=== PATIENT | male | born 1945 | race Caucasian/White ===

== ENCOUNTER 2024-12-25 14:24 | Inpatient (IN) | payer MEDICARE, OTHER ==
[~2024-12-25] VITALS: Ht 170.2 cm; Wt 71.0 kg
[2024-12-25 14:46] LABS: BASOPHILS % (AUTO) 0.4 % (0-1); EOSINOPHILS % (AUTO) 0.4 % (0-6); HEMATOCRIT 43.6 % (42.0-52.0); HEMOGLOBIN 14.3 g/dl (14.0-17.9); LYMPHOCYTES # (AUTO) 1.3 X10'3 (1.1-4.8); LYMPHOCYTES % (AUTO) 16.2 % (21-51); MEAN CORPUSCULAR HEMOGLOBIN 30.3 PG (27.0-31.0); MEAN CORPUSCULAR HGB CONC 32.9 g/dL (33.0-36.5); MEAN CORPUSCULAR VOLUME 91.9 FL (78-98); MEAN PLATELET VOLUME 8.3 FL (7.4-10.4); MONOCYTES # (AUTO) 0.5 X10'3 (0-0.9); MONOCYTES % (AUTO) 6.8 % (2-12); NEUTROPHILS # (AUTO) 5.9 X10'3 (1.8-7.7); NEUTROPHILS % (AUTO) 76.2 % (42-75); PLATELET COUNT 246 X10'3 (140-440); RED BLOOD COUNT 4.74 X10'6 (4.70-6.10); RED CELL DISTRIBUTION WIDTH 16.4 % (11.5-14.5); WHITE BLOOD COUNT 7.8 X10'3 (4.5-11.0)
--- NOTE | 2024-12-25 15:00 | Physician Documentation ---
History of Present Illness ~ Chief Complaint: Bradycardia Stated Complaint: IRREG HEART RATE Time Seen by MD: 14:28 OK to notify your PCP?: Yes Source: patient, RN/MD, EMS, RN notes reviewed, EMS notes reviewed, old records Mode of Arrival: EMS, Air Transport Exam Limitations: no limitations HPI 79 year old male presents to the emergency department flown in by [facility] from [facility]. Patient was given both aspirin and Lovanox while there and then transferred. 79 year old male presents to the emergency department for complaints with a chief complaint related cardiac arrhythmia. He states last week he was going to donate blood and the nurses up there noted he was having an irregular heart beat. The recommended he follow up with his primary care provider. He did see his primary today and EKG was collected and noted to have ventricle bigeminy. Patient states he was unaware of palpitations or arrhythmia as he has no history of this. He does report history of asthma and hypertension. Denies any chest pain, shortness of breath recent vomiting diarrhea or other symptoms of illness. Primary care provider notes note initial heart rate of 38 on arrival to the clinic. Patient denies any other associated symptoms at this time. Patient denies any other alleviating or exacerbating factors Significant labs: Troponin: 0.083 Chest Xray from [facility]: Impressions: 1. No acute cardiopulmonary disease. Medication Reconciliation Allergies: Uncoded Allergies: PEANUTS (Allergy, Unknown, NAUSEA, 12/25/24) Scheduled Atorvastatin Calcium (Atorvastatin Calcium), 1 TAB PO DAILY, (Reported) Brinzolamide (Brinzolamide), 1 DROP RIGHTEYE BID, (Reported) Lisinopril (Lisinopril), 2 TAB PO HS, (Reported) Miscellaneous Medications Budesonide (Pulmicort Flexhaler), (Reported) Dorzolamide HCl (Dorzolamide HCl), EACHEYE, (Reported) Latanoprost (Latanoprost), EACHEYE, (Reported) Discontinued Medications Lisinopril (Lisinopril), 1 TAB PO BID, (Reported) Discontinued Reason: patient no longer taking Past Medical History Past Medical History: Hypertension, Asthma, COPD, Anemia, Depression Smoking Status: Never smoker Alcohol Use: Occasionally Drug Use: none Review of Systems All Other Systems at this time: Reviewed and Negative ROS As stated above in the HPI, otherwise all systems are reviewed and negative. Physical Exam Vital Signs: RN Vital Signs have been reviewed: Yes, Temperature: 97.8, Heart Rate: 73, Respiratory Rate: 13, BP: 143/84, Pulse Oximetry: 97, Weight: 71.000 Oxygen Flow Rate: 0 Pulse Oximetry Reflects: adequate oxygenation Physical Exam General: The patient is well developed, well nourished, nontoxic appearing and is in no acute distress. Skin: [place], warm and dry with no rashes. HEENT: Head was normocephalic and atraumatic. Eyes - pupils equal, round, reactive to light and accommodation. Extraocular movements were intact. Conjunctivae were nonicteric. Ears - bilateral tympanic membranes were normal. The mouth and oropharynx were clear with moist mucous membranes. There were no pharyngeal exudates or erythema. Neck: Supple and nontender. There was no jugular venous distention, lymphadenopathy, thyromegaly or masses. Chest: Clear to auscultation bilaterally without wheezes, rales or rhonchi. No accessory muscle use. No dullness to percussion. Heart: Abnormal rate with irregular rhythm. S1, S2. No murmurs. Palpation of the chest wall was normal. No rubs or thrills. Abdomen: Soft, nontender and nondistended. Positive bowel sounds. No guarding or rebound. No hepatosplenomegaly or palpable masses. Extremities: No cyanosis, clubbing or edema. The patient moves all extremities. Pulses were equal and symmetric. Neurologic: Cranial nerves II-XII were intact. Sensation was intact to light touch throughout. Motor strength was 5/5 in all four extremities. Deep tendon reflexes were intact in both upper and lower extremities. Psychologic: The patient was oriented to person, place and time. The patient demonstrated appropriate judgement and insight. Progress Progress Note 1617: The case was discussed with Dr. Benavidez who was informed on the patients case and had kindly agreed to admission. Results/Orders Results/Orders Orders - MATHEW LOCKE MD Chest,Single View (12/25/24 14:36) Monitor (12/25/24 14:36) Saline Lock (12/25/24 14:36) Oxygen (12/25/24 14:36) Electrocardiogram (12/25/24 14:36) Page Hospitalist (12/25/24 15:22) Completed Orders - MATHEW LOCKE MD Chest,Single View (12/25/24 14:36) Cbc/Diff (12/25/24 14:36) PBNP (12/25/24 14:36) Electrocardiogram (12/25/24 14:36) CMP (12/25/24 14:36) Hs Troponin I W Calculations (12/25/24 14:36) Hs Troponin I W Calculations (12/25/24 16:36) Hs Troponin I W Calculations (12/25/24 17:36) Pt Inr (12/25/24 15:22) PTT (12/25/24 15:22) Normal Saline 1000ml (Sodium Chloride 10 (12/25/24 15:25) Hgb A1c (12/25/24 14:27) Medications Received in ER Medications (Trade) Dose Ordered Sig/Wandy Route PRN Reason Start Time Stop Time Status Last Admin Dose Admin Sodium Chloride 1,000 ml @ 200 mls/hr Q5H ONCE IV 12/25/24 15:25 12/25/24 20:24 DC 12/25/24 15:34 200 MLS/HR Vital Signs 12/25/24 12/25/24 12/25/24 12/25/24 14:25 14:59 15:36 15:39 Temp 97.8 97.8 97.8 Pulse 73 68 68 Resp 13 11 12 B/P (MAP) 143/84 113/78 (90) 120/75 (90) Pulse Ox 97 95 96 O2 Flow Rate 0 0 0 Laboratory Tests Test 12/25/24 14:27 White Blood Count 7.8 Red Blood Count 4.74 Hemoglobin 14.3 Hematocrit 43.6 Mean Corpuscular Volume 91.9 Mean Corpuscular Hemoglobin 30.3 Mean Corpuscular Hemoglobin Concent 32.9 L Red Cell Distribution Width 16.4 H Platelet Count 246 Mean Platelet Volume 8.3 Neutrophils (%) (Auto) 76.2 H Lymphocytes (%) (Auto) 16.2 L Monocytes (%) (Auto) 6.8 Eosinophils (%) (Auto) 0.4 Basophils (%) (Auto) 0.4 Neutrophils # (Auto) 5.9 Lymphocytes # (Auto) 1.3 Monocytes # (Auto) 0.5 Eosinophils # (Auto) 0.0 Basophils # (Auto) 0.0 CBC Comment Prothrombin Time 11.4 INR International Normalized Ratio 1.1 Activated Partial Thromboplast Time 31 Coagulation Comments Sodium Level 141 Potassium Level 4.2 Chloride Level 106 Carbon Dioxide Level 26.9 Anion Gap 8 Blood Urea Nitrogen 19 H Creatinine 1.08 Estimated GFR/1.73 m2 66 BUN/Creatinine Ratio 17.6 Glucose Level 103 Hemoglobin A1c 5.6 Calcium Level 9.2 Total Bilirubin 0.5 Aspartate Amino Transf (AST/SGOT) 41 H Alanine Aminotransferase (ALT/SGPT) 46 Alkaline Phosphatase 83 Troponin I High Sensitivity 104 *H Pro-B-Type Natriuretic Peptide 58 Total Protein 7.4 Albumin 3.7 Globulin 3.7 Albumin/Globulin Ratio 1.0 L Chemistry Comments Re-Evaluation Re-Evaluation : Re-Evaluation: Improved Additional Comment Patient was seen and examined. Patient is given reassurance. I received a phone call regarding the patient's management arrange assisted with pre-hospital care and transfer. Patient initial troponin was positive at follow up of her meals. I requested Lovenox and aspirin. Patient was then transferred to our facility. Upon arrival patient appears well no longer bradycardic in the 30s. Patient now has a heart rate in the 60s with occasional PVCs. CBC was within no rmal limits without leukocytosis or anemia. Chemistry LFTs were also within normal limits however troponin slightly elevated at 104. EKG was reassuring in that there was no signs of ischemia. Patient was then admitted to the hospitalist service or possible pacemaker cardiac catheterization and further workup and care. Patient is not on any beta blockers at this time. Continuous secured entrance monitor interpretation shows normal sinus rhythm heart rate 60s, no ectopy, normal, my interpretation. Pulse oximetry monitor interpretation shows normal oxygenation 96% room air, normal, my interpretation. EKG/XRAY/CT/US/VASC/MRI EKG : Additional Comment [facility] Test Date: 2024-12-25 Test Time: 14:25:24 Pat Name: ANTHONY MONROE Department: EMERGENCY ROOM Room: Gender: M Cruise Coordinator: : 1945 Requested By: MATHEW LOCKE Order Number: [id number] Reading MD: Dr. Mathew Locke Measurements Intervals [place] Rate: 71 P: 28 AR: 167 QRS: 40 QRSD: 95 T: 7 QT: 403 QTc: 438 Interpretive Statements Sinus rhythm Multiform ventricular premature complexes Borderline repolarization abnormality Electronically Signed On 12-25-2024 16:26:[address] Mathew Locke Please click the below link to view image of tracing. EKG Date and Time:12/25/24 1425 Electronically Signed by: MATHEW LOCKE MD Date and Time: 12/25/24 1626 Chest X-Ray : Additional Comments EXAM: XR Chest, 1 View CLINICAL INDICATION: CP TECHNIQUE: Frontal view of the chest. COMPARISON: None FINDINGS: LUNGS AND PLEURAL SPACES: Unremarkable. No consolidation. No pneumothorax. HEART: Unremarkable. No cardiomegaly. MEDIASTINUM: Unremarkable. Normal mediastinal contour. BONES/JOINTS: Unremarkable. No acute fracture. OTHER FINDINGS: . IMPRESSION: No acute cardiopulmonary process. Electronically Signed by:GILES RETANA MD Date & Time: 12/25/24 1515 Heart Score: Heart Score Response (Comments) Value History Slightly Suspicious 0 EKG Repolarization Disturb 1 Age >65 2 Risk Factors 1 or 2 risk factors 1 Troponin >3 x's Normal limit 2 Total 6 Medical Decision Making Additional info obtained from: old records Differential Dx:Considerations: Include: angina / [place], atrial dysrhythmia, atrial fibrillation, atrial flutter, MAT, PACs, PSVT, sinus tachycardia, WPW, 1st degree AV block, 2nd degree AVB-type 1, 2nd degree AVB-type 2, 3rd degree AV block, PVCs, torsades de pointes, ventricular fibrillation, ventricular tachycardia, other Differential Dx:Considerations: Include anxiety/panic attack, Include digoxin toxicity, Include electrolyte disorder, Include heart failure, Include hyperthy roidism, Include hyperventilation, Include hypoxia, Include pacemaker malfunction, Include pulmonary embolus, Include renal failure, Include other Departure Time of Disposition: 16:17 Disposition: 09 ADMITTED INPATIENT Admitted to Inpatient Unit: yes, to hospitalist Impression: Primary Impression: NSTEMI (non-ST elevated myocardial infarction) Additional Impressions: Bradycardia Bigeminy Condition: Guarded Referrals: NO PRIMARY CARE PROVIDER (PCP) Education Educated: Patient Educated regarding: diagnosis, need for follow up Critical Care Note Total Time (mins): 30 Critical Care Note The very real possibility of a deterioration of this patient's condition required the highest level of my preparedness for sudden, emergent intervention. I provided critical care services, which included medication orders, frequent reevaluations of the patient's condition and response to treatment, ordering and reviewing test results, and discussing the case with various consultants. Excludes time spent performing separately billable procedures. The critical care time associated with the care of the patient was 30 minutes. Signature Scribe Signature: Scribed for Mathew Locke MD by Brandon Broussard . 12/25/24 15:50 Attestation: The note accurately reflects work and decisions made by me.Mathew Locke MD 12/25/24 14:59 MATHEW LOCKE MD December 25, 2024 14:59 BRANDON PRADO December 25, 2024 15:39
[2024-12-25 15:01] LABS: ALANINE AMINOTRANSFERASE 46 U/L (12-78); ALBUMIN 3.7 G/DL (3.4-5.0); ALKALINE PHOSPHATASE 83 IU/L (46-116); ANION GAP 8 (8-16); ASPARTATE AMINO TRANSFERASE 41 U/L (10-37); BILIRUBIN,TOTAL 0.5 MG/DL (0.1-1.0); BLOOD UREA NITROGEN 19 MG/DL (7-18); BUN/CREATININE RATIO 17.6 (10.0-20.0); CALCIUM 9.2 MG/DL (8.5-10.1); CHLORIDE 106 MMOL/L (99-107); CREATININE 1.08 MG/DL (0.60-1.10); GLUCOSE 103 MG/DL (70-104); POTASSIUM 4.2 MMOL/L (3.5-5.1); SODIUM 141 MMOL/L (135-145); TOTAL CARBON DIOXIDE 26.9 MMOL/L (24-32); TOTAL PROTEIN 7.4 G/DL (6.4-8.2); eCRCL 54 ML/MIN; eGFR 66 ML/MIN
[2024-12-25 15:07] LABS: PRO BRAIN NATRIURETIC PEPTIDE 58 PG/ML (0-450)
--- NOTE | 2024-12-25 15:16 | ELECTROCARDIOGRAPH REPORT ---
[facility] Test Date: 2024-12-25 Test Time: 14:25:24 Pat Name: ANTHONY MONROE Department: EMERGENCY ROOM Room: Gender: M Security Incident Handler: : 1945 Requested By: ROGER SAEZ Order Number: [id number] Reading MD: Dr. Roger Saez Measurements Intervals [place] Rate: 71 P: 28 MS: 167 QRS: 40 QRSD: 95 T: 7 QT: 403 QTc: 438 Interpretive Statements Sinus rhythm Multiform ventricular premature complexes Borderline repolarization abnormality Electronically Signed On 12-25-2024 16:26:[address] Roger Saez Please click the below link to view image of tracing.
--- NOTE | 2024-12-25 15:17 | RADIOLOGY REPORT ---
EXAM: XR Chest, 1 View CLINICAL INDICATION: CP TECHNIQUE: Frontal view of the chest. COMPARISON: None FINDINGS: LUNGS AND PLEURAL SPACES: Unremarkable. No consolidation. No pneumothorax. HEART: Unremarkable. No cardiomegaly. MEDIASTINUM: Unremarkable. Normal mediastinal contour. BONES/JOINTS: Unremarkable. No acute fracture. OTHER FINDINGS: . IMPRESSION: No acute cardiopulmonary process.
[2024-12-25] MEDS: normal saline 1000ml 1,000 ML IV ONE (15:34)
[2024-12-25 15:57] LABS: APTT 31 SECONDS (22-32); INR 1.1 INR; PROTHROMBIN TIME 11.4 SECONDS (9.0-12.0)
--- NOTE | 2024-12-25 16:17 | HISTORY AND PHYSICAL ---
History & Physical Providers to CC ~ History of Present Illness Reason for Admit\Complaint: Arrhythmia History of Present Illness History of present illness patient is a pleasant 79-year-old gentleman that was transferred to us for [facility]. Patient had an mildly elevated troponins over there. He says about a week ago he went to donate some blood and they told him he has been irregular heartbeat and he was advised to go to his PCP who did an EKG in his office and noted ventricular bigeminy heart rate was in 30s he was sent to the [place] ER patient now his heart rates running in 60s to 70s he has not had any further bradycardia noted. Patient says he feels fine and he is ready to go home. I did talk to him in the family at the bedside and answered all their questions to the best of my ability and advised to be admitted overnight. Allergies: Uncoded Allergies: PEANUTS (Allergy, Unknown, NAUSEA, 12/25/24) Past Medical History Past Medical History Past medical history COPD hypertension hyperlipidemia Past surgical history nothing of significance Allergies NKDA peanuts Social history denies any nicotine or IV drug abuse has 1-2 drinks per month is lives with family Family history nothing of significance Review of systems negative for all 10 systems reviewed Exam Vitals: Vital Signs Date Time Temp Pulse Resp B/P (MAP) Pulse Ox O2 Delivery O2 Flow Rate FiO2 12/25/24 15:39 97.8 68 12 120/75 (90) 96 0 General: Objectively patient's vital signs are stable he is alert and oriented x4 in no acute distress lying down comfortably speaking in full sentences HEENT normocephalic nontraumatic head PERRLA. EOMI. Neck is supple there is no JVD no bruit CVS first and second heart sounds are regular rate rhythm there is no murmurs gallops or rubs Respiratory system is clear to auscultate bilaterally no rales rhonchi crackles or wheezing Abdomen is soft bowel sounds are positive nontender nondistended Extremities no clubbing cyanosis or edema Neurological exam no focal deficits Skin is warm and intact Diagnostic Data Last Recorded Lab Results: 12/25/24 1427 12/25/24 1427 Diagnostic Data: Laboratory Tests Test 12/25/24 14:27 Prothrombin Time 11.4 SECONDS (9.0-12.0) INR International Normalized Ratio 1.1 INR Activated Partial Thromboplast Time 31 SECONDS (22-32) Coagulation Comments Additional Plan Assessment and plan- -non-STEMI type 2 Possible mismatch in supply and demand with an arrhythmia underlying Monitor patient on a telemetry bed Started the patient on a baby aspirin Lovenox morphine oxygen and lipitor Get a Lexiscan Order an echocardiogram -bradycardia with ventricular bigeminy heart rate dropped into 30s Monitor on a telemetry bed May need a Holter monitor as an outpatient -hypertension well controlled continue home med use clonidine p.r.n. -hyperlipidemia Check lipid panel Continue Statins -patient is started on DVT prophylaxis with Lovenox Patient's that the bedside all questions answered to the best of my ability to her satisfaction with the plan of care Date of Service: December 25, 2024 Billing Provider: RICKY MITCHELL MD Common Visit Codes: 22088-[id number] INP/OBS CARE (HIGH) RICKY MITCHELL MD December 25, 2024 16:17
[2024-12-25] MEDS ORDERED: magnesium hydroxide 30ml (MOM) UD suspension PO PRN (16:20)
[2024-12-25] MEDS ORDERED: metoprolol tartrate 1mg/ml inj IV PRN (16:20)
[2024-12-25] MEDS ORDERED: potassium Cl 20 mEq SR tablet PO PRN ×2 (16:20)
[2024-12-25] MEDS ORDERED: magnesium sulf-water 2g/50mL 50 ML IV PRN (16:20)
[2024-12-25] MEDS ORDERED: ondansetron/PF 4mg/2ml inj IV PRN (16:20)
[2024-12-25] MEDS ORDERED: mag hydrox/Alum hydrox/simeth 30ml oral suspension PO PRN (16:20)
[2024-12-25] MEDS ORDERED: potassium Cl 40MEQ/1/2NS 520ml 520 ML IV PRN (16:20)
[2024-12-25] MEDS ORDERED: acetaminophen 325mg tablet PO PRN (16:20)
[2024-12-25] MEDS ORDERED: magnesium sulf-water 4G/100mL 100 ML IV PRN (16:20)
[2024-12-25] MEDS ORDERED: nitroGLYCERIN 0.4mg SUBLingual tab SL PRN (16:20)
[2024-12-25] MEDS ORDERED: HYDROcodone/acetaminophen 5mg/325mg tablet PO PRN (16:20)
[2024-12-25] MEDS ORDERED: morphine 2 MG/ML inj. syringe IV PRN (16:20)
[2024-12-25] MEDS ORDERED: magnesium Cl slow-release 64mg tablet PO PRN (16:20)
[2024-12-25] MEDS ORDERED: aminophylline 250mg/10ml inj. IV PRN (16:20)
[2024-12-25] MEDS: aspirin 81mg tab.chew PO SCH (16:20)
[2024-12-25 17:08] LABS: HEMOGLOBIN A1C 5.6 % (4.5-6.2)
[2024-12-25 18:00] VITALS: BP 122/84; PULSE 82; RESP 20; TEMP 97.6
--- NOTE | 2024-12-25 18:42 | CARDIOLOGY REPORT ---
APPROVED REPORT EXAM: Comprehensive 2D, Doppler, and color-flow Echocardiogram. Patient Location: ER RM 2 Blood Pressure: 139/75 mmHg Heart Rate: 64 bpm Indications Angina Troponin: 104 Hypertension Asthma COPD HATCHERY WORKER: Eleazar Nassar MD No Previous ECHO 2D Dimensions LA Diam3.5 cm IVSd 0.7 (0.7-1.1cm) LVDd 5.3 cm PWd 0.9 (0.7-1.1cm) IVSs 0.9 (0.8-1.2cm) LVDs 3.4 (2.5-4.0cm) PWs 1.1 (0.8-1.2cm) LVOT Diameter 2.06 (1.8-2.4cm) LVEF(%) 63.3 (>50%) IVC 12.25 mm FS (%) 34.6 % SV 84.3 ml CO 5.2 L/min M-Mode Dimensions Left Atrium(MM) 4.62 (2.5-4.0cm) Aortic Root 3.71 (2.2-3.7cm) Aortic Cusp Exc 2.31 (1.5-2.0cm) MV EPSS 1.0 (<0.5cm) Aortic Valve AoV Peak Marlo. 203.6 cm/s AoV VTI 31.6 cm AO Peak GR. 16.6 mmHg AO Mean GR. 9 mmHg LVOT VTI 21.48 cm LVOT Peak Marlo. 103.2 cm/s JOSE(VTI)/BSA 2.26 cm2/m2 JOSE (VTI) 2.26 cm2 AI P 1/2 Time 1640 ms Mitral Valve MV E Velocity 59.8 cm/s MV Peak Gr. 4 mmHg MV DECEL TIME 220 ms MV A Velocity 109.3 cm/s MV PHT 60 ms E/A Ratio 0.5 MVA (PHT) 3.67 cm2 MV VMax97.6 cm/s TDI Lateral E' P. V11.34 cm/s E/Lateral E' 5.3 Tricuspid Valve TR P. Velocity 222 cm/s RAP ESTIMATE 10 mmHg TR Peak Gr. 20 mmHg RVSP 30 mmHg LEFT VENTRICLE Normal LV size and wall thickness. Overall systolic function is normal. LVEF is 60-65%. RIGHT VENTRICLE Right ventricle is mildly dilated with normal function. ATRIA The left atrium size is normal. AORTIC VALVE Trileaflet AV appears milldy sclerotic without stenosis. Mild insufficiency. MITRAL VALVE Mild mitral annular calcification without stensis. Trace regurgitation. TRICUSPID VALVE The tricuspid valve is normal in structure with trace regurgitation. PULMONIC VALVE The pulmonary valve is normal in structure with physiologic insufficiency. GREAT VESSELS The aortic root is normal in size. The IVC is normal in size and collapses >50% with inspiration. PERICARDIUM Normal pericardium. No effusion. Other Information Study Quality: Adequate Conclusion Normal LV size and wall thickness. Overall systolic function is normal. LVEF is 60-65%. Right ventricle is mildly dilated with normal function. The left atrium size is normal. Trileaflet AV appears milldy sclerotic without stenosis. Mild insufficiency. Mild mitral annular calcification without stensis. Trace regurgitation. The tricuspid valve is normal in structure with trace regurgitation. Normal pericardium. No effusion.
[2024-12-25] MEDS ORDERED: DORZ10DR26 EACHEYE (19:04)
[2024-12-25] MEDS ORDERED: [UNRECOGNIZED DRUG - CODE] RIGHTEYE (19:04)
[2024-12-25] MEDS ORDERED: LATA2.5D14 EACHEYE (19:04)
[2024-12-25] MEDS ORDERED: BUDE90AE4 (19:04)
[2024-12-25] MEDS ORDERED: ATOR20TA66 PO (19:04)
[2024-12-25] MEDS ORDERED: LISI20TA28 PO ×2 (19:04→20:04)
[2024-12-25 19:41] VITALS: RESP 20; O2SAT 96
[2024-12-25] MEDS: K and/or MAG REPLACEMENT MC SCH (20:00)
[2024-12-25] MEDS: docusate sod 100mg capsule PO SCH (20:00)
[2024-12-25] MEDS: lisinopril 20mg tablet PO SCH (21:12)
[2024-12-25 22:00] VITALS: BP 155/89; PULSE 82; RESP 20; TEMP 97.6; O2SAT 98
[2024-12-26] VITALS (15 sets, daily range): BP systolic 107–158; BP diastolic 57–126; PULSE 50–100; RESP 14–27; TEMP 97.2–98.1; O2SAT 94–99
[2024-12-26 06:19] LABS: BASOPHILS % (AUTO) 0.3 % (0-1); EOSINOPHILS # (AUTO) 0.2 X10'3 (0-0.9); EOSINOPHILS % (AUTO) 4.1 % (0-6); HEMATOCRIT 40.5 % (42.0-52.0); HEMOGLOBIN 13.3 g/dl (14.0-17.9); LYMPHOCYTES # (AUTO) 1.3 X10'3 (1.1-4.8); LYMPHOCYTES % (AUTO) 25.4 % (21-51); MEAN CORPUSCULAR HEMOGLOBIN 30.2 PG (27.0-31.0); MEAN CORPUSCULAR HGB CONC 32.8 g/dL (33.0-36.5); MEAN CORPUSCULAR VOLUME 92.2 FL (78-98); MEAN PLATELET VOLUME 8.3 FL (7.4-10.4); MONOCYTES # (AUTO) 0.7 X10'3 (0-0.9); MONOCYTES % (AUTO) 13.1 % (2-12); NEUTROPHILS # (AUTO) 2.9 X10'3 (1.8-7.7); NEUTROPHILS % (AUTO) 57.1 % (42-75); PLATELET COUNT 201 X10'3 (140-440); RED BLOOD COUNT 4.39 X10'6 (4.70-6.10); RED CELL DISTRIBUTION WIDTH 16.4 % (11.5-14.5)
[2024-12-26 06:43] LABS: ALANINE AMINOTRANSFERASE 38 U/L (12-78); ALBUMIN 3.1 G/DL (3.4-5.0); ALBUMIN/GLOBULIN RATIO 0.9 (1.1-1.5); ALKALINE PHOSPHATASE 68 IU/L (46-116); ANION GAP 8 (8-16); ASPARTATE AMINO TRANSFERASE 31 U/L (10-37); BILIRUBIN,TOTAL 0.5 MG/DL (0.1-1.0); BLOOD UREA NITROGEN 15 MG/DL (7-18); BUN/CREATININE RATIO 14.3 (10.0-20.0); CALCIUM 8.7 MG/DL (8.5-10.1); CHLORIDE 109 MMOL/L (99-107); CHOL/HDL RATIO 2.6 (0.00-4.99); CHOLESTEROL 153 MG/DL (0-200); CREATININE 1.05 MG/DL (0.60-1.10); GLUCOSE 84 MG/DL (70-104); HDL CHOLESTEROL 60 MG/DL (35-60); LDL CHOLESTEROL 74 MG/DL (50-100); MAGNESIUM 2.1 MG/DL (1.5-2.4); POTASSIUM 3.8 MMOL/L (3.5-5.1); SODIUM 143 MMOL/L (135-145); TOTAL CARBON DIOXIDE 25.6 MMOL/L (24-32); TOTAL PROTEIN 6.4 G/DL (6.4-8.2); TRIGLYCERIDES 101 MG/DL (20-135); eCRCL 55 ML/MIN; eGFR 68 ML/MIN
[2024-12-26] MEDS ORDERED: atorvastatin 20mg tablet PO SCH (08:00)
[2024-12-26] MEDS: enoxaparin 40mg/0.4ml syringe SUBCUT SCH (08:01)
[2024-12-26] MEDS ORDERED: aminophylline 500mg/20ml vial ONE (11:23)
[2024-12-26] MEDS: regadenoson 0.4mg/5ml syringe IV PRN (11:25)
--- NOTE | 2024-12-26 15:33 | RADIOLOGY REPORT ---
CLINICAL INFORMATION: Chest pain. TECHNIQUE: 7 mCi of technetium 99m sestamibi was infused at rest. Rest SPECT imaging was obtained. R outine protocol for Lexiscan stress study was performed with 0.4 mg of Lexiscan. 35 mCi of technetium 99m sestamibi was infused. Stress SPECT imaging was obtained. COMPARISON: None FINDINGS: Resting heart rate of 55 BPM increased to maximum rate of 103 BPM. Resting blood pressure o f 132/63 increased to 158/126. There were no significant ST-T wave EKG changes. There was no chest pa in. There is [id number] diminished perfusion in the inferior wall involving the apical inferior a nd mid inferior segments, without corresponding diminished perfusion on rest images, consistent with stress-induced ischemia. There is also extension of the perfusion defect to portions of the apical la teral segment. TID ratio is 1.38. Wall motion imaging appears normal. Calculated left ventricular ejection fraction is 57%. IMPRESSION: 1. Suspected stress-induced ischemia of the inferior wall extending to adjacent portions of the apica l lateral segment. 2. Left ventricular ejection fraction is 57%. 3. TID measures 1.38, suggesting a degree of transient ischemic dilatation.
--- NOTE | 2024-12-26 16:18 | CONSULTATION REPORT ---
SAÚL DRAPER RESIDENTIAL DIRECTOR 12/26/24 1618: History of Present Illness Providers to CC CC: HOLLY WALKER MD ~ Reason for Admit\Admit Dx: Cardiology consultation History of Present Illness This is a 79-year-old male with past medical history significant for COPD, hypertension, hyperlipidemia. Presented for irregular heartbeat. He was giving flat and they noted an irregular heartbeat. Followed up with his primary care provider who noted ventricular bigeminy and he was sent for further evaluation and management. Underwent a echocardiogram that demonstrated preserved LVEF. No wall motion abnormalities. Underwent stress test with suspected stress- induced inferior wall ischemia. Cardiology consultation was requested with the on-call wave solder offbearer, Dr. Laguerre. Allergies: Uncoded Allergies: PEANUTS (Allergy, Unknown, NAUSEA, 12/25/24) Home Medications Home Medications Active Reported Lisinopril 20 Mg Tablet 2 Tab PO HS 30 Days Brinzolamide 1 % Drops.susp 1 Drop RIGHTEYE BID Pulmicort Flexhaler (Budesonide) 90 Mcg Aer.pow.ba Atorvastatin Calcium 20 Mg Tablet 1 Tab PO DAILY Latanoprost 0.005 % Drops EACHEYE Dorzolamide HCl 2 % Drops EACHEYE Past Medical History Medical History Comment Hypertension Hyperlipidemia COPD Past Surgical History Surgical History Comment Noncontributory Past Social History Social History Comment Does not smoke. Rare alcohol. No recreational drugs. Lives with . Physical Exam Last Vital Signs Recorded: RN Vital Signs have been reviewed: Yes, Temperature: 97.8, Source: Temporal, Heart Rate: 70, Respiratory Rate: 18, BP: 118/75, Pulse Oximetry: 95, Weight: 71.000 Physical Exam General: Awake, alert, oriented. No apparent distress Neck: Supple. Normal range of motion. No JVD Respiratory: Lungs are clear to auscultation bilaterally. No respiratory distress. Chest: Normal shape and size. No accessory muscle use. Cardiovascular: Regular rate and rhythm. S1-S2. No murmur, gallop, rub. Gastrointestinal: Abdomen is soft. Nontender to palpation. Bowel sounds present. Extremities: No lower extremity edema, cyanosis or clubbing. Neurologic: Alert and oriented x4. Nonfocal. Psychiatric: Normal mood and affect. Skin: Normal color. Warm and dry. Review of Systems ROS Review of systems negative except documented in HPI. Results EKG EKG Sinus rhythm with PVCs Echocardiogram Echocardiogram Conclusion Normal LV size and wall thickness. Overall systolic function is normal. LVEF is 60-65%. Right ventricle is mildly dilated with normal function. The left atrium size is normal. Trileaflet AV appears milldy sclerotic without stenosis. Mild insufficiency. Mild mitral annular calcification without stensis. Trace regurgitation. The tricuspid valve is normal in structure with trace regurgitation. Normal pericardium. No effusion. Dictated by:ELVIN LAGUERRE MD Dictation date and time:12/25/24 184 Cardiac Stress Test Cardiac Stress Test Ordering Physician: RICKY MITCHELL MD Exam: NM EDMAR SCAN CLINICAL INFORMATION: Chest pain. TECHNIQUE: 7 mCi of technetium 99m sestamibi was infused at rest. Rest SPECT imaging was obtained. Routine protocol for Lexiscan stress study was performed with 0.4 mg of Lexiscan. 35 mCi of technetium 99m sestamibi was infused. Stress SPECT imaging was obtained. COMPARISON: None FINDINGS: Resting heart rate of 55 BPM increased to maximum rate of 103 BPM. Resting blood pressure of 132/63 increased to 158/126. There were no significant ST-T wave EKG changes. There was no chest pain. There is [id number] diminished perfusion in the inferior wall involving the apical inferior and mid inferior segments, without corresponding diminished perfusion on rest images, consistent with stress-induced ischemia. There is also extension of the perfusion defect to portions of the apical lateral segment. TID ratio is 1.38. Wall motion imaging appears normal. Calculated left ventricular ejection fraction is 57%. IMPRESSION: 1. Suspected stress-induced ischemia of the inferior wall extending to adjacent portions of the apical lateral segment. 2. Left ventricular ejection fraction is 57%. 3. TID measures 1.38, suggesting a degree of transient ischemic dilatation. Electronically Signed by:DAVE RIVAS DO Date & Time: 12/26/24 1530 Diagram Lab Result Diagram: 12/26/24 0553 12/26/24 0553 Assessment/Plan Additional Plan This is a 79-year-old male who presented for arrhythmia. The following is his problem list: Ventricular arrhythmia with PVCs Underwent stress testing with stress-induced ischemia of the inferior wall Recommend cardiac catheterization. Risks, benefits and alternatives reviewed in detail with him and his . They had the opportunity to ask questions and wished to proceed. We will be scheduled for tomorrow afternoon with Dr. Laguerre. -aspirin 81 mg daily -metop 12.5 mg BID -atorva 20 mg daily NSTEMI -as above. Supervising MD Supervising Physician: ELVIN Epps MD 12/26/24 1639: History of Present Illness Providers to CC CC: HOLLY WALKER MD Allergies: Uncoded Allergies: PEANUTS (Allergy, Unknown, NAUSEA, 12/25/24) Results Diagram Lab Result Diagram: 12/26/24 0553 12/26/24 0553 Assessment/Plan Additional Plan Agree with the above note. Patient was seen and evaluated. Discussed the positive stress test and findings of ectopy. Recommend proceeding with a coronary angiography +/- angioplasty. The risks, benefits, alternatives, and complications of a coronary angiography +/- angioplasty were discussed in detail with the patient. He verbalized understanding and wishes to proceed. Will be scheduled for tomorrow afternoon. SAÚL DRAPER NP December 26, 2024 16:18 ELVIN LAGUERRE MD December 26, 2024 16:39
[2024-12-26] MEDS ORDERED: DORZ10DR26 RIGHTEYE (19:50)
[2024-12-26] MEDS ORDERED: LATA2.5D14 RIGHTEYE (19:50)
[2024-12-26] MEDS ORDERED: LATA2.5D14 LEFTEYE (19:50)
[2024-12-26] MEDS: atorvastatin 20mg tablet PO SCH (20:32)
[2024-12-26] MEDS: dorzolamide 2% ophthalmic drops 10ml RIGHTEYE SCH (20:34)
[2024-12-26] MEDS: latanoprost 0.005% 2.5ml ophthalmic drops EACHEYE SCH (20:34)
[2024-12-26] MEDS: metoprolol tartrate 12.5mg (1/2 tablet) PO SCH (20:39)
[2024-12-26] MEDS ORDERED: latanoprost 0.005% 2.5ml ophthalmic drops RIGHTEYE SCH (21:00)
[2024-12-27] VITALS (15 sets, daily range): BP systolic 92–124; BP diastolic 54–76; PULSE 45–91; RESP 14–32; TEMP 97.1–97.7; O2SAT 5–99
[2024-12-27 05:51] LABS: BASOPHILS % (AUTO) 0.6 % (0-1); EOSINOPHILS # (AUTO) 0.2 X10'3 (0-0.9); EOSINOPHILS % (AUTO) 3.5 % (0-6); HEMATOCRIT 39.5 % (42.0-52.0); HEMOGLOBIN 13.3 g/dl (14.0-17.9); LYMPHOCYTES # (AUTO) 1.4 X10'3 (1.1-4.8); LYMPHOCYTES % (AUTO) 24.3 % (21-51); MEAN CORPUSCULAR HEMOGLOBIN 30.9 PG (27.0-31.0); MEAN CORPUSCULAR HGB CONC 33.8 g/dL (33.0-36.5); MEAN CORPUSCULAR VOLUME 91.4 FL (78-98); MEAN PLATELET VOLUME 8.4 FL (7.4-10.4); MONOCYTES # (AUTO) 0.7 X10'3 (0-0.9); MONOCYTES % (AUTO) 11.5 % (2-12); NEUTROPHILS # (AUTO) 3.6 X10'3 (1.8-7.7); NEUTROPHILS % (AUTO) 60.1 % (42-75); PLATELET COUNT 208 X10'3 (140-440); RED BLOOD COUNT 4.32 X10'6 (4.70-6.10); RED CELL DISTRIBUTION WIDTH 16.5 % (11.5-14.5); WHITE BLOOD COUNT 5.9 X10'3 (4.5-11.0)
[2024-12-27 06:06] LABS: ALANINE AMINOTRANSFERASE 37 U/L (12-78); ALBUMIN 3.1 G/DL (3.4-5.0); ALBUMIN/GLOBULIN RATIO 0.9 (1.1-1.5); ALKALINE PHOSPHATASE 73 IU/L (46-116); ANION GAP 8 (8-16); ASPARTATE AMINO TRANSFERASE 23 U/L (10-37); BILIRUBIN,TOTAL 0.5 MG/DL (0.1-1.0); BLOOD UREA NITROGEN 22 MG/DL (7-18); CALCIUM 8.9 MG/DL (8.5-10.1); CHLORIDE 108 MMOL/L (99-107); CREATININE 1.16 MG/DL (0.60-1.10); GLUCOSE 91 MG/DL (70-104); MAGNESIUM 2.1 MG/DL (1.5-2.4); POTASSIUM 4.1 MMOL/L (3.5-5.1); SODIUM 143 MMOL/L (135-145); TOTAL CARBON DIOXIDE 27.2 MMOL/L (24-32); TOTAL PROTEIN 6.4 G/DL (6.4-8.2); eCRCL 50 ML/MIN; eGFR 61 ML/MIN
[2024-12-27] MEDS ORDERED: aminophylline 500mg/20ml vial IV PRN (10:53)
[2024-12-27] MEDS ORDERED: LIDOcaine 1% (10mg/ml) 2ml vial ONE (13:43)
[2024-12-27] MEDS ORDERED: fentaNYL/PF 50MCG/1 ML 2ML syringe ONE (13:43)
[2024-12-27] MEDS ORDERED: heparin 1,000unit/ml 10ml vial 10 ML ONE (13:43)
[2024-12-27] MEDS ORDERED: midazolam 1 mg/ML 2ml injection ONE (13:43)
[2024-12-27] MEDS ORDERED: iohexol 350 MG/ML 50ML vial IV ONE (13:43)
[2024-12-27] MEDS ORDERED: verapamil 2.5 mg/ml inj IV ONE (13:43)
[2024-12-27] MEDS ORDERED: iohexol 350MG/ML 100ml bottle IV ONE (13:44)
[2024-12-27] MEDS ORDERED: nitroGLYCERIN 500mcg/5mL D5W 5 ML IV ONE (13:45)
[2024-12-27] MEDS ORDERED: LIDOcaine 1% 30ml preserv. free vial ONE (14:33)
[2024-12-27] MEDS ORDERED: NORepinephrine 1 mg/ml inj IV ONE (14:40)
--- NOTE | 2024-12-27 15:36 | CARDIAC CATH REPORT ---
Post Cath Report Providers to CC CC: HOLLY WALKER MD; DAYRON LAGUERRE MD ~ Date of Procedure: December 27, 2024 Pre-Procedure Diagnosis: Abnormal Stress Test History: Htn, Hyperlipidemia CCS Anginal Class: II NYFA Functional Class: I Procedure Preformed: Left Heart Cath Post Procedure DX Same?: Yes Findings Findings: Procedure(s): 1. Selective Right and Left Coronary Angiography 2. Conscious sedation monitoring for 15 minutes Pre-Cardiac Catheterization Diagnosis: Abnormal stress test with suspected inferior wall reversible ischemia in apical lateral wall reversible ischemia Post-Cardiac Catheterization Diagnosis: Same Digital Marketing Consultant(s): Dayron Laguerre MD ([facility]) Indication: Mr. Villatoro is a 79-year-old male with a past medical history significant for hypertension and hyperlipidemia who presented to the emergency room with bradycardia. He had noted minimally elevated troponins and therefore underwent a stress test that was noted to be positive with suspected inferior wall reversible ischemia and apical lateral wall reversible ischemia. After obtaining informed consent, the patient was brought to the cardiac catheterization lab in a fasting state for further evaluation with a coronary angiography. Procedure Details: Informed consent was obtained. An George's test was performed pre-procedure and the right radial artery was deemed adequate for arterial access. The right wrist was preped and draped in usual manner. The area was infiltrated with 2% lidocaine. Right radial artery was entered with a terumo sureflo needle and a 6F sheath was inserted. A cocktail consisting of heparin, nitroglycerin, and verapamil was injected in the sheath. Selective coronary angiogram was performed with a tiger and a JL 3.5 catheter. At the completion of the procedure, all the wires and catheters were removed. The radial sheath was removed and a trans-radial band was used to achieve hemostasis. The patient was given conscious sedation and monitored for a total of 15 minutes. Catheters Used: 1. 6 Frisian Jemison 2. 6 Frisian JL3.5 All catheters were exchanged over the wire. CORONARY ANGIOGRAM: Left Main: Short vessel that is patent with no angiographic evidence of disease Left Anterior Descending: Moderate caliber branching vessel that has noted mild (30%) luminal irregularities in the proximal course. 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 Distally the LAD wraps around the apex. Left Circumflex: Non dominant vessel that has noted mild (30%) proximal nonobstructive disease Right Coronary Artery: Dominant vessel with noted moderate (40%) proximal nono bstructive disease. Left Ventricular Angiography: Not performed. Per echocardiogram ejection fraction was noted to be 60-65% Hemodynamics: Please refer to cathode washer flow sheet. Valve Disease: Not assessed Complications: None Impression: 1. Right dominant system 2. Mild to moderate nonobstructive coronary disease. Recommendations: -Routine post cath care and orders. -Transfer to the floor. -Continue with medical management. -Aggressive lifestyle and risk factor modifications were stressed to the patient. At the termination of procedure radial sheath removed and trans-radial band applied with good hemostasis Dominance: Right Moderate Sedation: Yes Complications: None Estimated Blood Loss: less than 5 cc Treatment Plan: Medical Therapy Condition on leaving Hvac Design Mechanical Engineer: Stable DAYRON LAGUERRE MD December 27, 2024 15:36
[2024-12-27] MEDS ORDERED: ASPI81TA53 PO (16:20)
--- NOTE | 2024-12-27 16:24 | DISCHARGE SUMMARY ---
Discharge Summary Providers to CC ~ Discharge Summary Admission Diagnosis: cp, bradycardia Hospital Course DATE OF ADMISSION: 12/25/24 DATE OF DISCHARGE: 12/27/24 Discharge Diagnosis\Comment: CAD cardiomyopathy hypertension hyperlipidemia Operations\Procedures: Angiogram Consultants: Dr. TURNER FTI Complications: None Condition on DC: Stable New Medications: Aspirin (Children's Aspirin) 81 Mg Tab.chew 81 MG PO DAILY@0830 for 30 Days, #30 TAB.CHEW Metoprolol Tartrate (Lopressor tablet) 25 Mg Tablet 12.5 MG PO BID for 30 Days, #60 TAB Hold for SBP below 100mm Hg Hold for Heart Rate below 60. Continued Medications: Atorvastatin Calcium (Atorvastatin Calcium) 20 Mg Tablet 1 TAB PO DAILY Brinzolamide (Brinzolamide) 1 % Drops.susp 1 DROP RIGHTEYE BID Budesonide (Pulmicort Flexhaler) 90 Mcg Aer.pow.ba Dorzolamide HCl (Dorzolamide HCl) 2 % Drops 1 DROP RIGHTEYE Q12H, #10 ML 0 Refills Latanoprost (Latanoprost) 0.005 % Drops 1 DROP RIGHTEYE HS, ML 0 Refills Latanoprost (Latanoprost) 0.005 % Drops 1 DROP LEFTEYE HS, ML 0 Refills Lisinopril (Lisinopril) 20 Mg Tablet 2 TAB PO HS for 30 Days, #30 TAB Discharge Summary: Patient is a pleasant 79-year-old admitted to my service on 12/25/2024 History of Present Illness History of present illness patient is a pleasant 79-year-old gentleman that was transferred to us for [facility]. Patient had an mildly elevated troponins over there. He says about a week ago he went to donate some blood and they told him he has been irregular heartbeat and he was advised to go to his PCP who did an EKG in his office and noted ventricular bigeminy heart rate was in 30s he was sent to the [facility] patient now his heart rates running in 60s to 70s he has not had any further bradycardia noted. Patient says he feels fine and he is ready to go home. I did talk to him in the family at the bedside and answered all their questions to the best of my ability and advised to be admitted overnight. Patient is alert and oriented x3 no acute distress lying down comfortably speaking In full sentences HEENT normocephalic nontraumatic head CVS first and second heart sounds are regular rate rhythm there is no murmurs gallops or rubs Respiratory system is clear to auscultate bilaterally no rales rhonchi crackles or wheezing Abdomen is soft bowel sounds are positive nontender nondistended Extremities no clubbing cyanosis or edema Right wrist no active site of bleeding noted Neurological exam no focal deficits Hospital course patient is a pleasant 79-year-old gentleman with a history of hypertension hyperlipidemia was in his usual state of health develop bradycardia of 30. Patient was seen at [facility] and transferred to us for higher level of care. Patient was seen in consultation by Dr. YUE MANNING a stress test done. Which was positive he had an angiogram done which shows-CORONARY ANGIOGRAM: Left Main: Short vessel that is patent with no angiographic evidence of disease Left Anterior Descending: Moderate caliber branching vessel that has noted mild (30%) luminal irregularities in the proximal course. 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 Distally the LAD wraps around the apex. Left Circumflex: Non dominant vessel that has noted mild (30%) proximal nonobstructive disease Right Coronary Artery: Dominant vessel with noted moderate (40%) proximal nonobstructive disease. Left Ventricular Angiography: Not performed. Per echocardiogram ejection fraction was noted to be 60-65% Hemodynamics: Please refer to [place] laborer flow sheet. Valve Disease: Not assessed Complications: None Impression: 1. Right dominant system 2. Mild to moderate nonobstructive coronary disease. Recommendations: -Routine post cath care and orders. -Transfer to the floor. -Continue with medical management. -Aggressive lifestyle and risk factor modifications were stressed to the patient. At the termination of procedure radial sheath removed and trans-radial band applied with good hemostasis Dominance: Right Moderate Sedation: Yes Complications: None Estimated Blood Loss: less than 5 cc Treatment Plan: Medical Therapy Patient tolerated the procedure well had no undue complications. Patient advised on close follow up with PCP and parts interpreter. *Problems/Diagnosis: (1) Bradycardia Status: Acute (2) Bigeminy Status: Acute (3) NSTEMI (non-ST elevated myocardial infarction) Status: Acute Total Time Spent on D/C: > 30 Minutes Date of Service: December 27, 2024 Billing Provider: RICKY MITCHELL MD Common Visit Codes: 79479-KAB/OBS DISCH DAY >30min RICKY MITCHELL MD December 27, 2024 16:24
--- NOTE | 2024-12-27 16:38 | PROGRESS NOTE ---
SAÚL DRAPER NP 12/27/24 1638: Progress Note Cardiology Providers to CC ~ Subjective Subjective Patient seen and examined post angiogram. Activity restrictions, postop follow- up reviewed. We will discontinue metoprolol given bradycardia today. Follow up and consider Holter monitor to assess PVC burden. Objective Result Diagram: 12/27/24 0525 12/27/24 0525 Coagulation Studies Laboratory Tests Test 12/25/24 14:27 Prothrombin Time 11.4 SECONDS (9.0-12.0) INR International Normalized Ratio 1.1 INR Activated Partial Thromboplast Time 31 SECONDS (22-32) Coagulation Comments Problem\Assessment\Plan Additional Plan This is a 79-year-old male who presented for arrhythmia. The following is his problem list: Ventricular arrhythmia with PVCs Underwent stress testing with stress-induced ischemia of the inferior wall Heart cath with no obstructive CAD. -aspirin 81 mg daily -Stop metop given bradycardia. consider outpatient Holter monitor to reassess PVC burden. -atorva 20 mg daily. NSTEMI -as above. Supervising Physician: ELVIN Epps MD 12/27/24 1815: Progress Note Cardiology Problem\Assessment\Plan Additional Plan Agree with note by CONTROL SYSTEMS SPECIALIST. Patient underwent a cardiac cath this afternoon that showed non-obstructive CAD that will be medically managed. Stop beta-izzy and proceed with an outpatient event monitor to further assess PVCs and bradycardia. SAÚL DRAPER NP December 27, 2024 16:38 ELVIN LAGUERRE MD December 27, 2024 18:15
== END 2024-12-27 21:00 | disposition home or self-care (01) | DRG 281 ==
LOC: ER 14:25 → ED HOLD 16:26 → PCU 3S 19:02
PROVIDERS: ADMIT Internal Medicine; ATTEND Internal Medicine
PROC: 4A02XM4 Measurement of Cardiac Total Activity, External Approach (ICD-10-PCS; 2024-12-26)
PROC: 3E033HZ Introduction of Radioactive Substance into Peripheral Vein, Percutaneous Approach (ICD-10-PCS; 2024-12-26)
PROC: 4A023N7 Measurement of Cardiac Sampling and Pressure, Left Heart, Percutaneous Approach (ICD-10-PCS; principal; 2024-12-27)
PROC: B2111ZZ Fluoroscopy of Multiple Coronary Arteries using Low Osmolar Contrast (ICD-10-PCS; 2024-12-27)
PROC: B2151ZZ Fluoroscopy of Left Heart using Low Osmolar Contrast (ICD-10-PCS; 2024-12-27)
DX: I21.4 Non-ST elevation (NSTEMI) myocardial infarction (principal); I42.9 Cardiomyopathy, unspecified; Q24.5 Malformation of coronary vessels; I25.10 Atherosclerotic heart disease of native coronary artery without angina pectoris; I10 Essential (primary) hypertension; J44.89 Other specified chronic obstructive pulmonary disease; F32.A Depression, unspecified; E78.5 Hyperlipidemia, unspecified; I49.3 Ventricular premature depolarization; Z79.899 Other long term (current) drug therapy; Z91.010 Allergy to peanuts; Z79.82 Long term (current) use of aspirin
CPT/HCPCS: 36415; 71045; 78452; 80053; 80061; 83036; 83735; 83880; 84484; 85025; 85610; 85730; 87081; 93005; 93017; 93306; 93454; 96360; 99152; 99153; 99291; A6258; A9500; C1894; G0378; J0280; J1644; J1650; J2003; J2250; J2785; J3010; J3490; J7030; Q9967